=== PATIENT | male | born 2000 | race Asian ===

== ENCOUNTER 2023-05-13 09:29 | Emergency (ER) | payer BC, OTHER ==
[2023-05-13 09:35] VITALS: BP 104/67; PULSE 77; RESP 20; TEMP 98.4; BMI 27.1
[2023-05-13] MEDS ORDERED: ACETAMINOPHEN 500 MG TABLET (FP) PO ONE (10:05)
[2023-05-13] MEDS ORDERED: BENZOCAINE/MENTH/CETYLPYRD CL 1 EACH LOZENGE MM PRN (10:05)
[2023-05-13] MEDS ORDERED: guaiFENesin/D-METHORPHAN HB 10 ML UNIT-DOSE CUPS PO ONE (10:05)
[2023-05-13] MEDS ORDERED: guaiFENesin/D-METHORPHAN HB 10 ML UNIT-DOSE CUPS ONE (10:18)
[2023-05-13] MEDS ORDERED: ACETAMINOPHEN 325 MG TABLET (FP) ONE (10:18)
[2023-05-13 11:41] LABS: THROAT:GRP A STREP NOT DETECTED (NOTDETECTED)
== END 2023-05-13 11:51 | disposition home or self-care (01) ==
LOC: JERFT 09:29
DX: R07.0 Pain in throat (principal); R05.9 Cough, unspecified; R50.9 Fever, unspecified; B34.9 Viral infection, unspecified; R10.9 Unspecified abdominal pain; U07.1 COVID-19
CPT/HCPCS: 0241U-QW; 87651; 99283-25

== ENCOUNTER 2024-02-01 20:17 | Emergency (ER) | payer BC ==
[2024-02-01 20:25] VITALS: BP 144/94; PULSE 85; RESP 18; TEMP 97.4; BMI 25.7
[2024-02-01 23:50] LABS: HIV INTERPRETATION NEGATIVE (NEGATIVE)
== END 2024-02-01 22:11 | disposition home or self-care (01) ==
LOC: JERFT 20:17
DX: Z11.3 Encounter for screening for infections with a predominantly sexual mode of transmission (principal)
CPT/HCPCS: 36415; 87389; 87491; 87591; 99283-25

== ENCOUNTER 2024-05-19 09:39 | Emergency (ER) | payer BC ==
[2024-05-19 09:44] VITALS: RESP 18; BMI 24.7
[2024-05-19 11:08] VITALS: BP 130/82; PULSE 95; TEMP 98.2
[2024-05-19 12:41] LABS: SYPHILIS W/ RPR CONF NON-REACTIVE (NONREACTIVE)
[2024-05-19 13:10] LABS: HIV INTERPRETATION NEGATIVE (NEGATIVE)
== END 2024-05-19 12:04 | disposition home or self-care (01) ==
LOC: JERFT 09:39
DX: Z20.2 Contact with and (suspected) exposure to infections with a predominantly sexual mode of transmission (principal)
CPT/HCPCS: 36415; 86780; 86803; 87389; 87491; 87591; 87661; 99283-25